=== PATIENT | male | born 1955 | race Caucasian/White ===

== ENCOUNTER → 2017-08-07 | Outpatient (CLI) | payer OTHER ==
[~2017-08-07] MED LIST: CONTRAST GIVEN MC
[2017-08-07] MEDS: IOHEXOL 240 MG/ML 100 ML VIAL. IV (11:45)
[2017-08-07] MEDS: IOHEXOL 300 MG/ML 50 ML VIAL. PO (13:30)
== END | disposition home or self-care (01) ==
LOC: CT 11:06
DX: K40.90 Unilateral inguinal hernia, without obstruction or gangrene, not specified as recurrent (principal); K57.30 Diverticulosis of large intestine without perforation or abscess without bleeding; M43.17 Spondylolisthesis, lumbosacral region; I70.0 Atherosclerosis of aorta; I10 Essential (primary) hypertension
CPT/HCPCS: 74177

== ENCOUNTER 2018-05-17 18:56 | Emergency (ER) | payer OTHER ==
[~2018-05-17] VITALS: Ht 182.9 cm; Wt 122.5 kg
[2018-05-17] MEDS ORDERED: IV NORMAL SALINE 1000ML BAG 1,000 ML IV SCH (19:30)
[2018-05-17] MEDS ORDERED: ASPIRIN CHEWABLE 81 MG TABLET. PO ONE (19:30)
--- NOTE | 2018-05-17 19:35 | PHYS DOC ---
Past Medical History Past Medical History: GERD, Hypertension Past Surgical History: Tonsillectomy, Other Additional Past Surgical Histo: 2 hernia surgeries. hydrosphere on right testicle. Alcohol Use: Rarely Drug Use: None Adult General Chief Complaint Chief Complaint: DIZZY/LIGHT HEADED HPI HPI Patient is a 62 year old male who presents with lightheadedness with standing. This started yesterday and has been getting worse over time. No nausea or vomiting. No chest pain or palpitations. No swelling in his legs feet or ankles. No shortness of breath or dyspnea on exertion. The lightheadedness gets better with standing up patient reports he does have ringing in his ears but this is long-standing and nothing new or different. Denies any head trauma. Denies any nausea, vomiting or diarrhea. Standing seems to make it worse. Sitting and laying down makes it better. Patient notes the has a mild cough that is lingering from a respiratory illness several weeks ago. [] Review of Systems Review of Systems Constitutional: Denies fever or chills [] Eyes: Denies change in visual acuity, redness, or eye pain [] HENT: Denies nasal congestion or sore throat [] Respiratory: Denies shortness of breath [] Cardiovascular: No chest pain or palpitations[] GI: Denies abdominal pain, nausea, vomiting, bloody stools or diarrhea [] : Denies dysuria or hematuria [] Musculoskeletal: Denies back pain or joint pain [] Integument: Denies rash or skin lesions [] Neurologic: Denies headache, focal weakness or sensory changes [] Endocrine: Denies polyuria or polydipsia [] All other systems were reviewed and found to be within normal limits, except as documented in this note. Current Medications Current Medications Current Medications Medications (Trade) Dose Ordered Sig/Aaron Start Time Stop Time Status Last Admin Dose Admin Aspirin (Children'S Aspirin) 324 mg 1X ONCE 05/17/18 19:30 05/17/18 19:34 DC 05/17/18 20:22 324 MG Sodium Chloride 1,000 ml @ 1,000 mls/hr Q1H 05/17/18 19:30 05/17/18 20:29 DC 05/17/18 20:23 1,000 MLS/HR Allergies Allergies Allergies Coded Allergies Type Severity Reaction Last Updated Verified iodine Allergy Intermediate SNEEZING AND ITCHY EYES 08/07/17 Yes lisinopril Allergy Intermediate cough 04/30/15 Yes Physical Exam Physical Exam Constitutional: Well developed, well nourished, no acute distress, non-toxic appearance. [] HENT: Normocephalic, atraumatic, bilateral external ears normal, oropharynx moist, no oral exudates, nose normal. [] Eyes: PERRLA, EOMI, conjunctiva normal, no discharge. [] Neck: Normal range of motion, no tenderness, supple, no stridor. [] Cardiovascular:Heart rate is tachycardic in the low 100s, with a regular rhythm , no murmur [] Lungs & Thorax: Bilateral breath sounds clear to auscultation [] Abdomen: Bowel sounds normal, soft, no tenderness, no masses, no pulsatile masses. [] Skin: Warm, dry, no erythema, no rash. [] Back: No tenderness, no CVA tenderness. [] Extremities: No tenderness, no cyanosis, no clubbing, ROM intact, no edema. [] Neurologic: Alert and oriented X 3, normal motor function, normal sensory function, no focal deficits noted. [] Psychologic: Affect normal, judgement normal, mood normal. [] Current Patient Data Vital Signs Vital Signs Date Time Temp Pulse Resp B/P (MAP) Pulse Ox O2 Delivery O2 Flow Rate FiO2 05/17/18 19:39 97.7 105 20 160/114 (129) 95 Room Air 97.7 Lab Values Laboratory Tests Test 05/17/18 19:32 05/17/18 20:38 05/17/18 20:53 White Blood Count 10.2 x10^3/uL (4.0-11.0) Red Blood Count 4.63 x10^6/uL (4.30-5.70) Hemoglobin 13.8 g/dL (13.0-17.5) Hematocrit 41.7 % (39.0-53.0) Mean Corpuscular Volume 90 fL (79-100) Mean Corpuscular Hemoglobin 30 pg (25-35) Mean Corpuscular Hemoglobin Concent 33 g/dL (31-37) Red Cell Distribution Width 13.4 % (11.5-14.5) Platelet Count 338 x10^3/uL (140-400) Neutrophils (%) (Auto) 56 % (31-73) Lymphocytes (%) (Auto) 35 % (24-48) Monocytes (%) (Auto) 7 % (0-9) Eosinophils (%) (Auto) 1 % (0-3) Basophils (%) (Auto) 1 % (0-3) Neutrophils # (Auto) 5.7 x10^3uL (1.8-7.7) Lymphocytes # (Auto) 3.6 x10^3/uL (1.0-4.8) Monocytes # (Auto) 0.7 x10^3/uL (0.0-1.1) Eosinophils # (Auto) 0.1 x10^3/uL (0.0-0.7) Basophils # (Auto) 0.1 x10^3/uL (0.0-0.2) Prothrombin Time 12.5 SEC (11.7-14.0) Prothrombin Time INR 1.0 (0.8-1.1) Sodium Level 137 mmol/L (136-145) Potassium Level 3.4 mmol/L (3.5-5.1) L Chloride Level 101 mmol/L (98-107) Carbon Dioxide Level 27 mmol/L (21-32) Anion Gap 9 (6-14) Blood Urea Nitrogen 17 mg/dL (8-26) Creatinine 0.8 mg/dL (0.7-1.3) Estimated GFR (Cockcroft-Gault) 98.0 BUN/Creatinine Ratio 21 (6-20) H Glucose Level 129 mg/dL (70-99) H Calcium Level 9.3 mg/dL (8.5-10.1) Magnesium Level 1.9 mg/dL (1.8-2.4) Total Bilirubin 0.6 mg/dL (0.2-1.0) Aspartate Amino Transferase (AST) 31 U/L (15-37) Alanine Aminotransferase (ALT) 81 U/L (16-63) H Alkaline Phosphatase 71 U/L (46-116) Troponin I Quantitative < 0.017 ng/mL (0.000-0.055) SV-Wmh-N-Type Natriuretic Peptide 8 pg/mL (0-124) Total Protein 7.3 g/dL (6.4-8.2) Albumin 3.7 g/dL (3.4-5.0) Albumin/Globulin Ratio 1.0 (1.0-1.7) Thyroid Stimulating Hormone (TSH) 3.325 uIU/mL (0.358-3.74) Influenza Type A Antigen Negative (NEGATIVE) Influenza Type B Antigen Negative (NEGATIVE) Urine Collection Type Unknown Urine Color Yellow Urine Clarity Clear Urine pH 7.0 Urine Specific [place] 1.025 Urine Protein Negative mg/dL (NEG-TRACE) Urine Glucose (UA) Negative mg/dL (NEG) Urine Ketones (Stick) Negative mg/dL (NEG) Urine Blood Negative (NEG) Urine Nitrite Negative (NEG) Urine Bilirubin Negative (NEG) Urine Urobilinogen Dipstick 1.0 mg/dL (0.2 mg/dL) Urine Leukocyte Esterase Negative (NEG) Urine RBC 0 /HPF (0-2) Urine WBC Rare /HPF (0-4) Urine Squamous Epithelial Cells Occ /LPF Urine Bacteria 0 /HPF (0-FEW) Laboratory Tests 05/17/18 19:32 Laboratory Tests 05/17/18 19:32 EKG EKG EKG shows a sinus rhythm at 97 bpm, no ST elevation, right axis deviation at 161 �, QTC of [address] elevations, nonspecific ST-T wave changes, no acute changes when compared with 04/30/2015. Interpreted by me at 1934[] Radiology/Procedures Radiology/Procedures CT head without contrast PQRS statement: CT scans at this facility use dose reduction including either automated exposure control, iterative reconstructions, and /or weight based radiation dosing via mA and kV modification when appropriate to reduce radiation dose to as low as reasonably achievable. HISTORY: Headache and dizziness. TECHNIQUE: [address] imaging skull base to vertex. FINDINGS: Calcified plaque of the intracranial arteries, and tortuosity which can be observed with long-standing hypertension. No intracranial hemorrhage, mass, hydrocephalus, extra-axial fluid collections or infarction. No acute ischemic change evident. The imaged paranasal sinuses, bones, mastoids and orbits are unremarkable. IMPRESSION: No acute intracranial CT abnormality. Chest x-ray showed no acute features[] Course & Med Decision Making Course & Med Decision Making Pertinent Labs and Imaging studies reviewed. (See chart for details) ED course: Patient arrived, was placed in bed, tolerated exam well. Patient was able to finally urinate after most of a liter of saline was administered. He reported feeling much better after the saline was complete. His heart rate improved from the low 100s to the 80s. Discussed lab and imaging findings with the patient who voiced understanding. All questions were answered. Patient was discharged in improved condition. Medical decision making: This does not appear to be a case of acute coronary syndrome, pneumonia, pneumothorax, intracranial mass or bleed. Believe this to be more related to hydration given his elevated BUN to creatinine ratio an elevated specific gravity after most of a liter had infused before he urinated.[ ] Dragon Disclaimer Dragon Disclaimer This electronic medical record was generated, in whole or in part, using a voice recognition dictation system. Departure Departure Impression: Primary Impression: Dehydration Disposition: 01 HOME, SELF-CARE Condition: IMPROVED Referrals: KHOA VERA Jr, MD (PCP) Follow-up in 2 days Patient Instructions: Dehydration, Adult Additional Instructions: Drink plenty of fluids. Follow-up with your primary care physician in 2 days. Return to the ER if worsening dizziness or any other concerns. PATRICE NGUYEN DO May 17, 2018 19:35
[2018-05-17 19:41] LABS: BASO # 0.1 x10^3/uL (0.0-0.2); BASO % 1 % (0-3); EOS # 0.1 x10^3/uL (0.0-0.7); EOS % 1 % (0-3); HEMATOCRIT 41.7 % (39.0-53.0); HEMOGLOBIN 13.8 g/dL (13.0-17.5); LYMPH # 3.6 x10^3/uL (1.0-4.8); LYMPH % 35 % (24-48); MEAN CORPUSCULAR HEMOGLOBIN 30 pg (25-35); MEAN CORPUSCULAR HGB CONC 33 g/dL (31-37); MEAN CORPUSCULAR VOLUME 90 fL (79-100); MONO # 0.7 x10^3/uL (0.0-1.1); MONO % 7 % (0-9); NEUT # 5.7 x10^3uL (1.8-7.7); NEUT % 56 % (31-73); PLATELET COUNT 338 x10^3/uL (140-400); RED BLOOD COUNT 4.63 x10^6/uL (4.30-5.70); RED CELL DISTRIBUTION WIDTH 13.4 % (11.5-14.5); WHITE BLOOD COUNT 10.2 x10^3/uL (4.0-11.0)
[2018-05-17 19:50] LABS: CALCIUM 9.3 mg/dL (8.5-10.1); CREATININE 0.8 mg/dL (0.7-1.3); POTASSIUM 3.4 mmol/L (3.5-5.1)
[2018-05-17 19:54] LABS: PROTHROMBIN TIME PATIENT 12.5 SEC (11.7-14.0)
[2018-05-17 19:56] LABS: ALBUMIN 3.7 g/dL (3.4-5.0); MAGNESIUM 1.9 mg/dL (1.8-2.4); TOTAL BILIRUBIN 0.6 mg/dL (0.2-1.0); TOTAL PROTEIN 7.3 g/dL (6.4-8.2)
--- NOTE | 2018-05-17 20:12 | RAD ---
CT head without contrast PQRS statement: CT scans at this facility use dose reduction including either automated exposure control, iterative reconstructions, and /or weight based radiation dosing via mA and kV modification when appropriate to reduce radiation dose to as low as reasonably achievable. HISTORY: Headache and dizziness. TECHNIQUE: [address] imaging skull base to vertex. FINDINGS: Calcified plaque of the intracranial arteries, and tortuosity which can be observed with long-standing hypertension. No intracranial hemorrhage, mass, hydrocephalus, extra-axial fluid collections or infarction. No acute ischemic change evident. The imaged paranasal sinuses, bones, mastoids and orbits are unremarkable. IMPRESSION: No acute intracranial CT abnormality. Electronically signed by: Jose Encinas MD (05/17/2018 8:07 PM) [facility]
[2018-05-17 21:04] LABS: BILIRUBIN,URINE NEGATIVE (NEG); CLARITY,URINE CLEAR; COLOR,URINE YELLOW; NITRITE,URINE NEGATIVE (NEG); PROTEIN,URINE NEGATIVE (NEG-TRACE)
[2018-05-17 21:09] LABS: INFLUENZA A PATIENT NEGATIVE (NEGATIVE); INFLUENZA B PATIENT NEGATIVE (NEGATIVE)
[2018-05-17 21:11] LABS: BACTERIA,URINE 0 /HPF (0-FEW); RBC,URINE 0 /HPF (0-2); SQUAMOUS EPITHELIAL CELL,UR OCC /LPF; WBC,URINE RARE /HPF (0-4)
[2018-05-17 21:15] VITALS: BP 152/81
--- NOTE | 2018-05-18 03:40 | RAD ---
PORTABLE CHEST 1V Clinical History: Dizziness and tachycardia Technique: AP view of the chest was obtained at 05/17/2018 7:30 PM. Comparison: None. Findings: The cardiomediastinal silhouette is normal. The pulmonary vasculature is normal. There is linear and patchy opacities in the lung bases left worse than right. Impression: Mild basal infiltrates likely discoid atelectasis. Electronically signed by: Zaid Silvestre III, MD (05/18/2018 3:35 AM) [facility]
--- NOTE | 2018-05-18 12:08 | EKG ---
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
--- NOTE | 2018-05-20 13:15 | EKG ---
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
== END 2018-05-17 21:30 | disposition home or self-care (01) ==
LOC: ER 18:56
DX: E86.0 Dehydration (principal); R42 Dizziness and giddiness; K21.9 Gastro-esophageal reflux disease without esophagitis; I10 Essential (primary) hypertension; Z90.89 Acquired absence of other organs; Z88.8 Allergy status to other drugs, medicaments and biological substances; Z91.041 Radiographic dye allergy status; Z79.82 Long term (current) use of aspirin
CPT/HCPCS: 36415; 70450; 71045; 80053; 81001; 83735; 83880; 84443; 84484; 85025; 85610; 87804; 93005; 96360; 99284; J7030

== ENCOUNTER → 2019-08-24 | Outpatient (CLI) | payer OTHER ==
[~2019-08-24] MED LIST changes: +AMLO5TAB10 PO; -CONTRAST GIVEN MC; +DOCU-153 PO; +HYDR-2761 PO; +LORA10TA55 PO; +MELO15TA6 PO; +METH750T2 PO; +MONT10TA49 PO; +OLME1TAB25 PO; +OMEP40CA45 PO; +POTA20TA4 PO
[2019-08-24 14:28] LABS: BASO % 0 % (0-3); EOS # 0.1 x10^3/uL (0.0-0.7); EOS % 1 % (0-3); HEMATOCRIT 39.9 % (39.0-53.0); HEMOGLOBIN 13.5 g/dL (13.0-17.5); LYMPH # 2.5 x10^3/uL (1.0-4.8); LYMPH % 30 % (24-48); MEAN CORPUSCULAR HEMOGLOBIN 31 pg (25-35); MEAN CORPUSCULAR HGB CONC 34 g/dL (31-37); MEAN CORPUSCULAR VOLUME 90 fL (79-100); MONO # 0.7 x10^3/uL (0.0-1.1); MONO % 8 % (0-9); NEUT # 5.2 x10^3/uL (1.8-7.7); NEUT % 61 % (31-73); PLATELET COUNT 328 x10^3/uL (140-400); RED BLOOD COUNT 4.41 x10^6/uL (4.30-5.70); RED CELL DISTRIBUTION WIDTH 13.4 % (11.5-14.5); WHITE BLOOD COUNT 8.5 x10^3/uL (4.0-11.0)
[2019-08-24 14:42] LABS: ALBUMIN 3.8 g/dL (3.4-5.0); ALBUMIN/GLOBULIN RATIO 1.2 (1.0-1.7); CALCIUM 8.5 mg/dL (8.5-10.1); CREATININE 1.1 mg/dL (0.7-1.3); GFR 67.4; POTASSIUM 3.9 mmol/L (3.5-5.1); TOTAL BILIRUBIN 0.4 mg/dL (0.2-1.0)
--- NOTE | 2019-08-24 15:07 | EKG ---
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
--- NOTE | 2019-08-25 12:35 | HP ---
ADMIT DATE: 08/27/2019 PREOP HISTORY AND PHYSICAL DATE OF SURGERY: 08/27/2019 HISTORY OF PRESENT ILLNESS: The patient is a pleasant 64-year-old who in April developed severe neck and left arm pain after a driving trip. He said that his left arm has felt weak ever since. He notes numbness in the ring and little fingers of his left hand. He said that the pain is a 7/10 at its worse. Today, his pain is a 2-3/10. Sitting and driving increases pain. Lying down helps. Oral steroids were of no benefit. He has had 9 sessions of physical therapy, which helped him only slightly. There is no problem on the right arm. He has never had a similar problem. PAST MEDICAL HISTORY: Arthritis and hypertension. PAST SURGICAL HISTORY: He denies any past surgical history. FAMILY HISTORY: Cancer and hypertension. 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 . Quit smoking greater than 10 years ago. Drinks alcohol 1-2 times per month. ALLERGIES: No known drug allergies. CURRENT MEDICATIONS: Omeprazole, meloxicam, hydrochlorothiazide, amlodipine besylate and potassium. REVIEW OF SYSTEMS: A 12-point review of systems was obtained and is noncontributory except for that mentioned above. PHYSICAL EXAMINATION: NEUROSURGERY EXAMINATION: GENERAL APPEARANCE: Alert, pleasant, in no acute distress. HEAD: Normocephalic and atraumatic. NECK AND THYROID: Oqpv-ys-xdvcvnrr tenderness with palpation of posterior cervical region. SKIN: Warm and dry. MUSCULOSKELETAL: Cervical paraspinal muscle bulk is normal, cervical range of motion is restricted, normal range of motion of the upper extremities bilaterally. EXTREMITIES: No clubbing, cyanosis or edema. NEUROLOGIC: Alert and oriented x 3, normal recent and remote memory, strength 5/5 in bilateral upper and lower extremities except 4/5 left triceps. Sensory was intact to light touch in the upper and lower extremities except for a decrease in the left ring and little fingers. Reflexes were trace and symmetric in the upper and lower extremities bilaterally except for an absent left triceps reflex, normal gait. IMAGING: I reviewed an MRI scan of the cervical spine. On that study, there are multilevel degenerative changes with areas of liyb-va-zheirmld foraminal narrowing. There is severe foraminal narrowing; however, on the left at C6-C7. ASSESSMENT/ PLAN: I believe the severe foraminal narrowing on the left at C6-C7 is responsible for his pain. He has had this problem for more than 4 months. He is slightly improved with physical therapy. He has had significant triceps weakness. My recommendation at this point is that he consider anterior cervical discectomy and fusion. He would strongly like to go ahead with this. I did discuss the surgery and the risks involved and expected postoperative course. He understands. He would like to proceed. We will make the arrangements. DARIAN MOORE MD DR: AHMET/lyn JOB#: [id number] / [id number] ANDREW
== END | disposition home or self-care (01) ==
LOC: SURGPAT 13:34
PROVIDERS: ATTEND Neurological Surgery
DX: Z01.818 Encounter for other preprocedural examination (principal); M47.22 Other spondylosis with radiculopathy, cervical region
CPT/HCPCS: 36415; 80053; 85025; 87641; 93005; U0003

== ENCOUNTER 2019-08-27 07:28 | Observation (INO) | payer OTHER ==
[~2019-08-27] VITALS: Ht 182.9 cm; Wt 122.5 kg
[2019-08-27] VITALS (8 sets, daily range): BP systolic 94–127; BP diastolic 65–76
[~2019-08-27 07:28] MED LIST changes: +BACITRACIN 50,000 UNIT in IV NORMAL SALINE 1000ML BAG 1,000 ML IRR ONE; +BUPIVACAINE-EPI 0.5%-1:200000 MPF 30 ML VIAL. ONE; -DOCU-153 PO; +GELATIN SPONGE SIZE 100. ONE; -HYDR-2761 PO; +HYDROmorphone 2 MG/ML VIAL IV PRN; +IV RINGERS,LACTATED 1000ML 1,000 ML IV SCH; +LIDOCAINE 1% PF 2 ML VIAL. ID PRN; -METH750T2 PO; +MORPHINE SULFATE 2 MG/ML VIAL. IV PRN; +ONDANSETRON PF 4 MG/2 ML VIAL. IV PRN; +PROCHLORPERAZINE 10 MG/2 ML VIAL. IV PRN; +THROMBIN TOPICAL 20,000 UNIT SPRAY.SYRN KIT TP ONE; +ceFAZolin SODIUM 3 GM in IV DEXTROSE 5% 100ML 100 ML IV PRN; +fentaNYL PF VIAL 100 MCG/2 ML VIAL IV PRN
[2019-08-27] MEDS ORDERED: LIDOCAINE 2% PF 5 ML VIAL. ONE (07:34)
[2019-08-27] MEDS ORDERED: fentaNYL PF VIAL 100 MCG/2 ML VIAL ONE ×2 (07:34→11:48)
[2019-08-27] MEDS ORDERED: REMIFENTANIL 2 MG VIAL. IV ONE (07:34)
[2019-08-27] MEDS ORDERED: PROPOFOL 10 MG/ML (20ML) VIAL. IV ONE (07:34)
[2019-08-27] MEDS ORDERED: ROCURONIUM 50 MG/5 ML VIAL. ONE (07:34)
[2019-08-27] MEDS ORDERED: 0.9 % SODIUM CHLORIDE 20 ML VIAL. IJ ONE (07:34)
[2019-08-27] MEDS ORDERED: PROPOFOL 50 ML IV ONE ×2 (07:34→09:51)
[2019-08-27] MEDS ORDERED: DESFLURANE > 120 MINUTES IH ONE (08:57)
[2019-08-27] MEDS ORDERED: DEXAMETHASONE SOD PHOS 20 MG/5 ML VIAL. ONE (08:57)
[2019-08-27] MEDS ORDERED: PHENYLEPHRINE in 0.9% NACL PF 1 MG/10 ML SYRINGE. IV ONE (09:02)
[2019-08-27] MEDS ORDERED: VASOPRESSIN 20 UNIT/ML VIAL. ONE (09:10)
[2019-08-27] MEDS ORDERED: PHENYLEPHRINE 10 MG/ML VIAL. ONE (09:28)
[2019-08-27] MEDS ORDERED: GLYCOPYRROLATE 1 MG/5 ML VIAL. ONE (09:34)
[2019-08-27] MEDS ORDERED: REMIFENTANIL 1 MG VIAL. IV ONE (10:30)
[2019-08-27] MEDS ORDERED: ONDANSETRON PF 4 MG/2 ML VIAL. ONE (11:14)
[2019-08-27] MEDS ORDERED: POTASSIUM CL 20MEQ D5-0.45NACL 1,000 ML IV SCH (11:24)
[2019-08-27] MEDS ORDERED: MAG HYDROX/ALUMINUM HYD/SIMETH 30 ML ORAL.SUSP PO PRN (11:30)
[2019-08-27] MEDS ORDERED: MAGNESIUM HYDROXIDE 2,400 MG/30 ML ORAL.SUSP. PO PRN (11:30)
[2019-08-27] MEDS: PANTOPRAZOLE 40 MG TABLET.DR. PO SCH (11:30)
[2019-08-27] MEDS ORDERED: fentaNYL PF VIAL 100 MCG/2 ML VIAL IVP PRN (11:30)
[2019-08-27] MEDS ORDERED: ACETAMINOPHEN 325 MG TABLET. PO PRN (11:30)
[2019-08-27] MEDS ORDERED: METHOCARBAMOL 750 MG TABLET PO PRN (11:30)
[2019-08-27] MEDS ORDERED: HYDROcodone/APAP 5/325MG 1 TAB TABLET PO PRN ×2 (11:30)
[2019-08-27] MEDS ORDERED: 0.9 % SODIUM CHLORIDE 10 ML DISP.SYRIN. IV PRN (11:30)
[2019-08-27] MEDS ORDERED: CALCIUM CARBONATE 500 MG TAB.CHEW PO PRN (11:30)
[2019-08-27] MEDS ORDERED: diphenhydrAMINE HCL 25 MG CAPSULE PO PRN (11:30)
[2019-08-27] MEDS ORDERED: ONDANSETRON PF 4 MG/2 ML VIAL. IVP PRN (11:30)
[2019-08-27] MEDS ORDERED: NALOXONE 0.4 MG/ML VIAL. IV PRN (11:30)
[2019-08-27] MEDS: fentaNYL PF VIAL 100 MCG/2 ML VIAL IV PRN ×2 (11:51→12:21)
[2019-08-27] MEDS ORDERED: hydroCHLOROthiazide 12.5 MG CAPSULE PO SCH (12:00)
[2019-08-27] MEDS: CETIRIZINE HCL 10 MG TABLET. PO SCH ×2 (12:00→19:32)
[2019-08-27] MEDS ORDERED: POTASSIUM CHLORIDE 20 MEQ TABLET.ER. PO SCH (12:00)
[2019-08-27] MEDS ORDERED: LOSARTAN POTASSIUM 50 MG TABLET. PO SCH (12:00)
[2019-08-27] MEDS ORDERED: amLODIPine BESYLATE 5 MG TABLET PO SCH (12:00)
--- NOTE | 2019-08-27 13:08 | OP ---
DATE OF SURGERY: 08/27/2019 PREOPERATIVE DIAGNOSES: Lateral recess stenosis/foraminal narrowing with severe left cervical radiculopathy, C6-C7. POSTOPERATIVE DIAGNOSES: Lateral recess stenosis/foraminal narrowing with severe left cervical radiculopathy, C6-C7. OPERATION PERFORMED: Anterior cervical microdiscectomy, C6-C7; anterior cervical interbody fusion, C6-C7 with interbody fusion cage packed with allograft and autograft bone anterior cervical plate, C6-C7. The surgery was done with EMG monitoring, SSEP monitoring, fluoroscopy, microscopic dissection, and motor evoked potentials. SURGEON: Robel Moore M.D. AD COPY WRITER: CHYNA Kc, assisted with the surgery. She assisted with the exposure, the microdiscectomy and microdecompression as well as the closure. OPERATIVE INDICATIONS: The patient is a pleasant 64-year-old, who developed intractable back and left arm pain, which was severe. On imaging studies, he had severe foraminal narrowing at C6-C7 on the left and I recommended an anterior cervical discectomy and fusion at that level. I discussed with him the surgery and the risks, the technique and he wished to go ahead. DESCRIPTION OF PROCEDURE: Following general endotracheal anesthesia, the patient was positioned supine on the operating room table. The anterior cervical region was prepped and draped in standard fashion. SARA hose and AV impulse boots were applied for DVT prophylaxis. A microscope was draped. Fluoroscopy was draped and brought into field. Monitoring was established. Ancef 3 grams was given less than 1 hour prior to initiation of surgery. Using fluoroscopic guidance, a curvilinear incision was made from the midline around to the right side in a skin crease. I dissected down through skin and subcutaneous tissue. After sharply dividing the platysma, I passed around the medial aspect of sternocleidomastoid and carotid artery sheath down the anterior cervical vertebral bodies. I placed anterior cervical retractors. I placed 14 mm pins in C6 and C7. Because of the size, it was difficult to visualize C6-C7, but I could visualize C5-C6 and placed a needle in C5-C6, had a clear visibility at C6-C7. I distracted the disc space at C6-C7 after placing anterior cervical retractors. I incised the anterior annulus and performed a generous discectomy. I drilled the anterior spurring and kept that bone for the fusion and then I drilled the posterior spurring and then opened this with a 1 and 2 mm micro Kerrison. I removed a thickened ligamentum flavum. As I worked on the left side, there was severe narrowing, which I released with the Kerrisons and then I also decompressed the right side as well. I was easily able to pass a blunt hook out through the foramen. I scraped away cartilaginous endplate and measured and placed a 6-mm interbody fusion cage, which was packed with allograft and autograft bone. Once this was gently tapped in, I placed an anterior plate with 12 mm and placed four 14 mm screws without difficulty. These were locked. I irrigated copiously, removed the retractors and Valsalva the patient and assured myself of perfect hemostasis and I closed the wound in layers with absorbable suture and the skin with a 4-0 subcuticular stitch. The surgery went very well and I was quite pleased. ROBEL MOORE MD DR: AHMET/lyn JOB#: [id number] / [id number] ANDREW
[2019-08-27] MEDS: ceFAZolin SODIUM IV Push 1 GM VIAL. IVP SCH (17:43)
[2019-08-27] MEDS ORDERED: MONTELUKAST SODIUM 10 MG TABLET. PO SCH (21:00)
[2019-08-27] MEDS ORDERED: DOCUSATE SODIUM 100 MG CAPSULE. PO SCH (21:00)
[2019-08-27] MEDS ORDERED: SODIUM CHLORIDE 0.65% NASAL SPRAY 45ML BOTTLE. NS PRN (21:15)
[2019-08-28] MEDS: ceFAZolin SODIUM IV Push 1 GM VIAL. IVP SCH (01:28)
[2019-08-28 03:00] VITALS: BP 129/82
[2019-08-28] MEDS: PANTOPRAZOLE 40 MG TABLET.DR. PO SCH (06:38)
[2019-08-28 07:00] VITALS: BP 129/77
[2019-08-28] MEDS ORDERED: DOCU-153 PO (08:36)
[2019-08-28] MEDS ORDERED: METH750T2 PO (08:36)
[2019-08-28] MEDS ORDERED: HYDR-2761 PO (08:36)
--- NOTE | 2019-08-28 08:38 | DISCH ---
DISCHARGE INSTRUCTIONS Condition on Discharge Condition on Discharge: Stable Activity After Discharge Activity Instructions for Disc: Activity as tolerated, Avoid exertion Other activity instructions: no driving for a week, soft collar for comfort Bathing Instructions: Shower-keep dressing dry Lifting Instructions after Dis: No heavy lifting, No pulling or pushing, Do not lift >10 pounds Diet after Discharge Additional Diet Restrictions: resume home diet Wound Incision Care Wound/Incision Care: Ice to area for comfort Other wound/incision instructi: may remove dressing in 48 hours if dry then may shower, no soaking Contacting the after DC Call your doctor for: Concerns you may have Follow-Up Follow up with: Dr. Moore's nurse in 2 weeks [phone] DARIAN MOORE MD August 28, 2019 08:38
== END 2019-08-28 09:35 | disposition home or self-care (01) ==
LOC: SURG 07:28 → 4 NORTH 13:48
PROVIDERS: ADMIT Neurological Surgery; ATTEND Neurological Surgery
DX: M47.812 Spondylosis without myelopathy or radiculopathy, cervical region (principal)
CPT/HCPCS: 20930; 20937; 22551; 22845; 22853; 76000; 96374; 96376; 97161; G0378; G0379; J0690; J1100; J2370; J2405; J2704; J3010; J3490; J7030

== ENCOUNTER → 2019-11-23 | Outpatient (CLI) | payer OTHER ==
[~2019-11-23] MED LIST changes: -BACITRACIN 50,000 UNIT in IV NORMAL SALINE 1000ML BAG 1,000 ML IRR ONE; -BUPIVACAINE-EPI 0.5%-1:200000 MPF 30 ML VIAL. ONE; +DOCU-153 PO; -GELATIN SPONGE SIZE 100. ONE; +HYDR-2761 PO; -HYDROmorphone 2 MG/ML VIAL IV PRN; -IV RINGERS,LACTATED 1000ML 1,000 ML IV SCH; -LIDOCAINE 1% PF 2 ML VIAL. ID PRN; +METH750T2 PO; -MORPHINE SULFATE 2 MG/ML VIAL. IV PRN; -ONDANSETRON PF 4 MG/2 ML VIAL. IV PRN; -PROCHLORPERAZINE 10 MG/2 ML VIAL. IV PRN; -THROMBIN TOPICAL 20,000 UNIT SPRAY.SYRN KIT TP ONE; -ceFAZolin SODIUM 3 GM in IV DEXTROSE 5% 100ML 100 ML IV PRN; -fentaNYL PF VIAL 100 MCG/2 ML VIAL IV PRN
--- NOTE | 2019-11-23 12:29 | KCIC ---
EXAM: CERVICAL SPINE 2-3V. HISTORY: Cervical fusion. COMPARISON: None. FINDINGS: Anterior cervical discectomy and fusion changes are noted at C6-7 with an anterior plate fixed by screws and interbody grafting. Cervical alignment is maintained. There is mild upper thoracic levocurvature. No fractures are identified. Remaining intervertebral disc heights are maintained for patient age. There appears to be moderate osteoarthritis at C1-2. Carotid atherosclerotic calcifications are noted bilaterally. IMPRESSION: 1. C6-7 anterior cervical discectomy and fusion in expected alignment. Electronically signed by: Malissa Ventura MD (11/23/2019 12:26 PM) [id number]
== END | disposition home or self-care (01) ==
LOC: KCIC 11:01
PROVIDERS: ATTEND Neurological Surgery
DX: M43.22 Fusion of spine, cervical region (principal); M43.8X4 Other specified deforming dorsopathies, thoracic region; I65.23 Occlusion and stenosis of bilateral carotid arteries; Z98.1 Arthrodesis status
CPT/HCPCS: 72040

== ENCOUNTER → 2020-02-24 | Outpatient (CLI) | payer OTHER ==
[~2020-02-24] MED LIST changes: +AMLO-186 PO; -AMLO5TAB10 PO
--- NOTE | 2020-02-24 16:41 | KCIC ---
L-spine 3 views INDICATION: Pain and crepitus. Low back pain since feeling a pop in the lumbar spine 2 weeks ago. COMPARISON: No relevant comparisons currently available.. FINDINGS: 5 lumbar type vertebrae. Generalized demineralization. No acute fracture or aggressive osseous lesions. Bilateral L5 pars defects are present with grade 1-2 anterolisthesis of L5 on S1. Lumbar spinal alignment is otherwise unremarkable. Disc space narrowing is mildly present at L1-L2 and to a lesser extent at L2-L3 but most conspicuously at L5-S1 where vacuum phenomenon is also present. Minimal facet hypertrophic changes present at L4-L5. Sacroiliac joints and visualized hips are unremarkable. Soft tissues show arterial calcifications. IMPRESSION: Bilateral L5 pars defects with grade 1-2 anterolisthesis of L5 on S1. These have a chronic appearance but acute on chronic injury is possible. Consider correlation with MRI if clinically warranted. Electronically signed by: Momo Castaneda MD (02/24/2020 4:38 PM) [id number]
== END ==
LOC: KCIC 11:25
PROVIDERS: ATTEND Physician Assistant
DX: M43.17 Spondylolisthesis, lumbosacral region (principal); M81.8 Other osteoporosis without current pathological fracture
CPT/HCPCS: 72100

== ENCOUNTER → 2020-06-21 | Outpatient (CLI) | payer OTHER ==
[~2020-06-21] MED LIST changes: +LORA-169 PO; -LORA10TA55 PO; +METH-562 PO; -METH750T2 PO
--- NOTE | 2020-06-21 12:38 | KCIC ---
EXAM: Lumbar spine MRI without contrast. HISTORY: Acute back pain. TECHNIQUE: Multiplanar, multisequence magnetic resonance imaging of the lumbar spine was performed wi thout contrast. COMPARISON: CT dated 01/27/2020. FINDINGS: There is a transitional lumbosacral segment. This considered S1 with rudimentary S1-S2 disc for this dictation. There is grade 1 anterolisthesis of L5 on S1, measuring 5 mm. There are bilatera l pars interarticularis defects at this level. There is degenerative endplate remodeling with disc sp trev narrowing, osteophytosis and disc desiccation at this level. There is no suspicious osseous lesio n. There are few benign osseous hemangiomas. The conus terminates at L1-L2. There is suggestion of a 10 mm partially exophytic lesion along the posterior mid zone of the left kidney. At L1-L2 and L2-L3, there is no stenosis. At L3-L4, there is a disc bulge and endplate remodeling. There is mild bilateral facet arthropathy. T here is no stenosis. At L4-L5, there is a minimal shallow posterior central disc protrusion. There is endplate remodeling. There is mild bilateral facet arthropathy. There is no stenosis. At L5-S1, there is a broad-based posterior central to left paracentral disc protrusion with left para central to lateral recess disc extrusion extending 10 mm superior to the disc space. There are also b ilateral paracentral to extraforaminal disc protrusions and slight superior extrusions and osteophyte complexes at this level. There is epidural lipomatosis. There is grade 1 anterolisthesis with bilate ral pars defects. There is severe lateral foraminal stenosis with abutment the exiting L5 nerve roots . There is severe narrowing of the thecal sac predominant due to epidural lipomatosis. IMPRESSION: 1. L5-S1: Broad-based posterior central to left paracentral disc protrusion with superimposed left pa racentral to lateral recess superior extrusion and bilateral posterior lateral disc protrusions with slight superior extrusions and osteophyte complexes. The combination of these findings and grade 1 an terolisthesis with bilateral pars defects and epidural lipomatosis results in severe bilateral forami nal stenosis and severe narrowing of the thecal sac. 2. Mild degenerative change throughout the remainder the lumbar spine, described in detail above. No additional significant foraminal or central canal stenosis is seen. 3. Suspected small partially exophytic lesion along the posterior mid zone of the left kidney. The pr eviously suspected right renal cysts is excluded from the [id number] on this exam. Renal sonograph y can be performed to confirm benignity. The adrenal gland are also excluded from the [id number]-hrva. Electronically signed by: Meg Andrade MD (06/21/2020 12:35 PM) [id number]
== END ==
LOC: KCIC MRI 10:36
PROVIDERS: ATTEND Physician Assistant
DX: M47.816 Spondylosis without myelopathy or radiculopathy, lumbar region (principal); M43.17 Spondylolisthesis, lumbosacral region; M25.78 Osteophyte, vertebrae
CPT/HCPCS: 72148

== ENCOUNTER → 2020-07-19 | Outpatient (CLI) | payer OTHER ==
--- NOTE | 2020-07-19 17:22 | KCIC ---
EXAM: Renal sonogram. HISTORY: Renal cyst on MRI. TECHNIQUE: Sonographic imaging of the kidneys and bladder was performed. COMPARISON: MRI dated 06/21/2020. FINDINGS: The kidneys are normal in size. There are simple appearing bilateral renal cysts measuring 1.8 cm of the right and 1.7 cm on the left. No convincing solid renal lesion is seen. There are suspe cted 7 mm nonobstructing bilateral renal stones. The prevoid bladder volume is 179 cc. The bilateral ureteral jets are seen. IMPRESSION: 1. Small simple appearing renal cysts. Follow-up is not routinely performed for simple cysts. 2. Suspected bilateral nephrolithiasis. Electronically signed by: Meg Andrade MD (07/19/2020 5:20 PM) [facility]
== END ==
LOC: KCIC US 12:53
PROVIDERS: ATTEND Physician Assistant
DX: N28.1 Cyst of kidney, acquired (principal)
CPT/HCPCS: 76770

== ENCOUNTER → 2020-08-07 | Outpatient (CLI) | payer OTHER, MEDICARE ==
[~2020-08-07] MED LIST changes: +DOCU-109 PO; +MELO15TA23 PO
[2020-08-07 09:20] LABS: BASO % 1 % (0-3); EOS # 0.1 x10^3/uL (0.0-0.7); EOS % 2 % (0-3); HEMATOCRIT 40.4 % (39.0-53.0); HEMOGLOBIN 13.8 g/dL (13.0-17.5); LYMPH # 2.2 x10^3/uL (1.0-4.8); LYMPH % 28 % (24-48); MEAN CORPUSCULAR HEMOGLOBIN 31 pg (25-35); MEAN CORPUSCULAR HGB CONC 34 g/dL (31-37); MEAN CORPUSCULAR VOLUME 91 fL (79-100); MONO # 0.7 x10^3/uL (0.0-1.1); MONO % 9 % (0-9); NEUT # 4.8 x10^3/uL (1.8-7.7); NEUT % 62 % (31-73); PLATELET COUNT 273 x10^3/uL (140-400); RED BLOOD COUNT 4.46 x10^6/uL (4.30-5.70); RED CELL DISTRIBUTION WIDTH 13.8 % (11.5-14.5); WHITE BLOOD COUNT 7.8 x10^3/uL (4.0-11.0)
[2020-08-07 09:57] LABS: ALBUMIN 4.2 g/dL (3.4-5.0); ALBUMIN/GLOBULIN RATIO 1.3 (1.0-1.7); CALCIUM 8.6 mg/dL (8.5-10.1); CREATININE 0.9 mg/dL (0.7-1.3); POTASSIUM 4.5 mmol/L (3.5-5.1); TOTAL BILIRUBIN 0.7 mg/dL (0.2-1.0); TOTAL PROTEIN 7.4 g/dL (6.4-8.2)
== END ==
LOC: SURGPAT 08:48
PROVIDERS: ATTEND Neurological Surgery
DX: Z01.812 Encounter for preprocedural laboratory examination (principal); M51.17 Intervertebral disc disorders with radiculopathy, lumbosacral region; M48.07 Spinal stenosis, lumbosacral region; Z20.822 Contact with and (suspected) exposure to COVID-19
CPT/HCPCS: 80053; 85025; 87641; U0003; U0005

== ENCOUNTER 2020-08-09 08:26 | Observation (INO) | payer MEDICARE ==
--- NOTE | 2020-08-08 16:19 | PREOP HP ---
DATE OF SERVICE: 08/09/2020 HISTORY OF PRESENT ILLNESS: The patient is a 64-year-old man who is having difficulty with low back pain which radiates to his lower extremities. On the right side, the pain is in the posterior thigh and leg. On the left side, there is a diffuse left leg pain, especially after walking distances. The right-sided pain has been present for years. The back pain has been present for several months. The left leg pain has also been present for several months. Walking and standing increases his back and lower extremity discomfort. Sitting helps. He takes Advil and Celebrex. He has had multiple chiropractic treatments, which he said helped for only a few days. He has had a steroid Medrol Dosepak, which did help him temporarily. He did undergo an ACDF at C6-C7 in August of 2019 and did well. CURRENT MEDICATIONS: 1. Azithromycin. 2. Prednisone. 3. Loratadine. 4. Singulair. 5. Advil. 6. Omeprazole. 7. Meloxicam. 8. Potassium. PAST MEDICAL HISTORY: 1. Arthritis. 2. Hypertension. PAST SURGICAL HISTORY: ACDF C6-C7. FAMILY HISTORY: Cancer and hypertension. 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 . Quit smoking more than 10 years ago. Drinks alcohol 1-2 times per month. REVIEW OF SYSTEMS: A 12-point review of systems was performed and is noncontributory except that as mentioned above. PHYSICAL EXAMINATION: GENERAL: Alert, pleasant, in no acute distress. HEENT: Head normocephalic, atraumatic. SKIN: Warm and dry. Well-healed cervical incision. MUSCULOSKELETAL: Lumbar paraspinal muscle bulk is normal. Restricted range of motion of the lumbar spine. Mild to moderate tenderness of the lower lumbar spine with palpation. Normal range of motion of the lower extremities bilaterally. EXTREMITIES: No clubbing, cyanosis or edema. NEUROLOGIC: Alert and oriented x 3. Normal recent and remote memory. Strength is 5/5 in the lower extremities bilaterally. Sensory is intact to light touch in the lower extremities. Reflexes were present and symmetric in the lower extremities bilaterally. Negative straight leg raising bilaterally. Normal gait. IMAGING: I reviewed a lumbar MRI scan from 06/21/2020. On that study, the primary abnormality is at L5-S1 where there is a broad-based central and left paracentral disk protrusion as well as disk extrusion which extends about 10 mm into the disk space. The disk bulging combined with epidural lipomatosis is associated with severe lateral recess stenosis and moderate stenosis of the central canal. ASSESSMENT AND PLAN: He has relatively severe back and right and left leg pain. He has significant changes at L5-S1 which include epidural lipomatosis as well as severe disk bulging and stenosis. My recommendation is that he undergo a complete laminectomy with removal of the epidural lipomatosis as well as a diskectomy to decompress the L5 and S1 roots bilaterally. I did discuss this with him in detail. He understands the rationale for the surgery. We spoke about treatment options. He has no interest in pursuing that and that he did have physical therapy and chiropractic treatment without benefit. He understands the surgery and the risk and would like to proceed. AHMET/PRECIOUS/ANIBAL DR: Waylon TID: [id number]
[2020-08-09] VITALS (8 sets, daily range): BP systolic 98–126; BP diastolic 58–79
[~2020-08-09] VITALS: Ht 182.9 cm; Wt 127.0 kg
[~2020-08-09 08:26] MED LIST changes: +BACITRACIN 50,000 UNIT in IV NORMAL SALINE 1000ML BAG 1,000 ML IRR ONE; -DOCU-109 PO; +HYDROmorphone 2 MG/ML VIAL IVP PRN; +IV RINGERS,LACTATED 1000ML 1,000 ML IV SCH; +fentaNYL PF VIAL 100 MCG/2 ML VIAL IVP PRN
[2020-08-09] MEDS ORDERED: KETOROLAC 60 MG/2 ML VIAL. ONE (10:10)
[2020-08-09] MEDS ORDERED: GELATIN SPONGE SIZE 100. ONE (10:10)
[2020-08-09] MEDS ORDERED: THROMBIN TOPICAL 20,000 UNIT SPRAY.SYRN KIT TP ONE (10:11)
[2020-08-09] MEDS ORDERED: BUPIVACAINE-EPI 0.5%-1:200000 MPF 30 ML VIAL. ONE (10:11)
[2020-08-09] MEDS ORDERED: ePHEDrine PF IN SALINE 50 MG/10 ML SYRINGE. IV ONE (10:40)
[2020-08-09] MEDS ORDERED: PROPOFOL 50 ML IV ONE ×2 (10:41→13:29)
[2020-08-09] MEDS ORDERED: GLYCOPYRROLATE 1 MG/5 ML VIAL. ONE (10:41)
[2020-08-09] MEDS ORDERED: PROPOFOL 10 MG/ML (20ML) VIAL. IV ONE (10:42)
[2020-08-09] MEDS ORDERED: LIDOCAINE 2% PF 5 ML VIAL. ONE (10:42)
[2020-08-09] MEDS ORDERED: fentaNYL PF VIAL 100 MCG/2 ML VIAL ONE ×2 (10:42→14:24)
[2020-08-09] MEDS ORDERED: SUCCINYLCHOLINE 200 MG/10 ML VIAL. ONE (10:43)
[2020-08-09] MEDS ORDERED: ROCURONIUM 50 MG/5 ML VIAL. ONE (10:43)
[2020-08-09] MEDS ORDERED: REMIFENTANIL 2 MG VIAL. IV ONE (10:43)
[2020-08-09] MEDS ORDERED: DESFLURANE > 120 MINUTES IH ONE ×2 (12:04→13:29)
[2020-08-09] MEDS ORDERED: PHENYLEPHRINE 10 MG/ML VIAL. ONE (12:04)
[2020-08-09] MEDS ORDERED: NEOSTIGMINE METHYLSULFATE 5 MG/5 ML SYRINGE. ONE (13:30)
[2020-08-09] MEDS ORDERED: METH-562 PO (14:16)
[2020-08-09] MEDS ORDERED: DOCU-109 PO (14:16)
[2020-08-09] MEDS ORDERED: HYDR-2761 PO (14:16)
--- NOTE | 2020-08-09 14:17 | DISCH ---
DISCHARGE INSTRUCTIONS Condition on Discharge Condition on Discharge: Stable Activity After Discharge Activity Instructions for Disc: Activity as tolerated, Avoid exertion Other activity instructions: no driving for a week Bathing Instructions: Shower-keep dressing dry Lifting Instructions after Dis: No heavy lifting, No pulling or pushing, Do not lift >10 pounds Driving Instructions after Dis: Do not drive today Weight Bearing Status after Di: As tolerated Diet after Discharge Diet after Discharge: Regular Additional Diet Restrictions: resume home diet Wound Incision Care Wound/Incision Care: Ice to area for comfort Other wound/incision instructi: may remove dressing in 48 hours if dry then may shower, no soaking Contacting the after DC Call your doctor for: Concerns you may have Follow-Up Follow up with: Dr. Moore's nurse in 2 weeks [phone] DARIAN MOORE MD August 09, 2020 14:17
[2020-08-09] MEDS ORDERED: PROCHLORPERAZINE 10 MG/2 ML VIAL. ONE (14:24)
[2020-08-09] MEDS: PROCHLORPERAZINE 10 MG/2 ML VIAL. IVP PRN ×2 (14:28→14:48)
[2020-08-09] MEDS: fentaNYL PF VIAL 100 MCG/2 ML VIAL IVP PRN ×2 (14:28→14:48)
[2020-08-09] MEDS: MORPHINE SULFATE 2 MG/ML VIAL. IVP PRN ×2 (15:08→15:35)
[2020-08-09] MEDS ORDERED: NALOXONE 0.4 MG/ML VIAL. IV PRN (15:15)
[2020-08-09] MEDS ORDERED: MAGNESIUM HYDROXIDE 2,400 MG/30 ML ORAL.SUSP. PO PRN (15:15)
[2020-08-09] MEDS ORDERED: CALCIUM CARBONATE 500 MG TAB.CHEW PO PRN (15:15)
[2020-08-09] MEDS ORDERED: diphenhydrAMINE HCL 25 MG CAPSULE PO PRN (15:15)
[2020-08-09] MEDS: POTASSIUM CL 20MEQ D5-0.45NACL 1,000 ML IV SCH (15:15)
[2020-08-09] MEDS ORDERED: METHOCARBAMOL 750 MG TABLET PO PRN (15:15)
[2020-08-09] MEDS ORDERED: HYDROcodone/APAP 5/325MG 1 TAB TABLET PO PRN ×2 (15:15)
[2020-08-09] MEDS ORDERED: fentaNYL PF VIAL 100 MCG/2 ML VIAL IVP PRN (15:15)
[2020-08-09] MEDS ORDERED: MAG HYDROX/ALUMINUM HYD/SIMETH 30 ML ORAL.SUSP PO PRN (15:15)
[2020-08-09] MEDS ORDERED: 0.9 % SODIUM CHLORIDE 10 ML DISP.SYRIN. IV PRN (15:15)
--- NOTE | 2020-08-09 15:31 | PDOC1 ---
History and Physical Date of Admission Date of Admission DATE: 08/09/20 TIME: 15:31 Identification/Chief Complaint Chief Complaint post op consult [id number] laminectomy today History of Present Illness History of Present Illness low back pain which radiates to his lower extremities. On the pain is in the posterior thigh and leg. pre-op On the left side, there diffuse left leg pain, especially after walking distances. The right-sided pain has been present for years. The back pain has been present for several months. Walking and standing increases his back and lower extremity discomfort. He takes Advil and Celebrex. He has failed conservative treatments He has had multiple chiropractic treatments, which helped for only a few days. He has had a steroid Medrol Dosepak, which did help him temporarily. hx ACDF at C6-C7 in August of 2019 mri confirms severe bilateral foraminal stenosis and severe narrowing of the thecal sac. Past Medical History Past Medical History mri confirms severe bilateral foraminal stenosis and severe narrowing of the thecal sac. 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) Current Medications Current Medications Current Medications Fentanyl Citrate (Fentanyl 2ml Vial) 25 mcg PRN Q5MIN PRN IVP MILD PAIN 1-3; Start 08/09/20 at 06:00; Stop 08/10/20 at 05:59 Fentanyl Citrate (Fentanyl 2ml Vial) 50 mcg PRN Q5MIN PRN IVP MODERATE PAIN 4-6 Last administered on 08/09/20at 14:48; Start 08/09/20 at 06:00; Stop 08/10/20 at 05:59 Morphine Sulfate (Morphine Sulfate) 1 mg PRN Q10MIN PRN IVP SEVERE PAIN 7-10 Last administered on 08/09/20at 15:08; Start 08/09/20 at 06:00; Stop 08/10/20 at 05:59 Ringer's Solution 1,000 ml @ 30 mls/hr Q24H IV Last administered on 08/09/20at 09:25; Start 08/09/20 at 06:00; Stop 08/09/20 at 17:59 Hydromorphone HCl (Dilaudid) 0.5 mg PRN Q10MIN PRN IVP SEVERE PAIN 7-10, 2nd CHOICE; Start 08/09/20 at 06:00; Stop 08/10/20 at 05:59 Prochlorperazine Edisylate (Compazine) 5 mg PACU PRN PRN IVP NAUSEA, MRX1 Last administered on 08/09/20at 14:48; Start 08/09/20 at 06:00; Stop 08/10/20 at 05:59 Bacitracin 14058 unit/Sodium Chloride 1,000 ml @ 1,000 mls/hr 1X ONCE IRR Last administered on 08/09/20at 12:29; Start 08/09/20 at 06:00; Stop 08/09/20 at 06:59; Status DC Cefazolin Sodium/ Dextrose 50 ml @ 100 mls/hr 1X PREOP PRN IV PRIOR TO PROCEDURE Last administered on 08/09/20at 12:00; Start 08/09/20 at 06:00; Stop 08/09/20 at 18:00 Gelatin (Gelfoam Size 100) 1 each STK-MED ONCE .ROUTE Last administered on 08/09/20at 12:29; Start 08/09/20 at 10:10; Stop 08/09/20 at 10:11; Status DC Ketorolac Tromethamine (Toradol Im) 60 mg STK-MED ONCE .ROUTE Last administered on 08/09/20at 12:29; Start 08/09/20 at 10:10; Stop 08/09/20 at 10:11; Status DC Thrombin 20,000 unit STK-MED ONCE TP Last administered on 08/09/20at 12:29; Start 08/09/20 at 10:11; Stop 08/09/20 at 10:11; Status DC Bupivacaine HCl/ Epinephrine Bitart (Sensorcain-Epi 0.5%-1:723802 Mpf) 30 ml STK-MED ONCE .ROUTE Last administered on 08/09/20at 12:29; Start 08/09/20 at 10:11; Stop 08/09/20 at 10:11; Status DC Ephedrine Sulfate (ePHEDrine PF IN SALINE SYRINGE) 50 mg STK-MED ONCE IV ; Start 08/09/20 at 10:40; Stop 08/09/20 at 10:41; Status DC Glycopyrrolate (Robinul) 1 mg STK-MED ONCE .ROUTE ; Start 08/09/20 at 10:41; Stop 08/09/20 at 10:41; Status DC Propofol 50 ml @ As Directed STK-MED ONCE IV ; Start 08/09/20 at 10:41; Stop 08/09/20 at 10:41; Status DC Propofol (Diprivan) 200 mg STK-MED ONCE IV ; Start 08/09/20 at 10:42; Stop 08/09/20 at 10:42; Status DC Lidocaine HCl (Lidocaine Pf 2% Vial) 5 ml STK-MED ONCE .ROUTE ; Start 08/09/20 at 10:42; Stop 08/09/20 at 10:42; Status DC Fentanyl Citrate (Fentanyl 2ml Vial) 100 mcg STK-MED ONCE .ROUTE ; Start 08/09/20 at 10:42; Stop 08/09/20 at 10:43; Status DC Remifentanil HCl (Ultiva) 2 mg STK-MED ONCE IV ; Start 08/09/20 at 10:43; Stop 08/09/20 at 10:43; Status DC Rocuronium Montgomery (Zemuron) 50 mg STK-MED ONCE .ROUTE ; Start 08/09/20 at 10:43; Stop 08/09/20 at 10:43; Status DC Succinylcholine Chloride (Anectine) 200 mg STK-MED ONCE .ROUTE ; Start 08/09/20 at 10:43; Stop 08/09/20 at 10:43; Status DC Desflurane (Suprane) 90 ml STK-MED ONCE IH ; Start 08/09/20 at 12:04; Stop 08/09/20 at 12:05; Status DC Phenylephrine HCl (Owen-Synephrine Inj) 10 mg STK-MED ONCE .ROUTE ; Start 08/09/20 at 12:04; Stop 08/09/20 at 12:05; Status DC Propofol 50 ml @ As Directed STK-MED ONCE IV ; Start 08/09/20 at 13:29; Stop 08/09/20 at 13:30; Status DC Desflurane (Suprane) 90 ml STK-MED ONCE IH ; Start 08/09/20 at 13:29; Stop 08/09/20 at 13:30; Status DC Neostigmine Montgomery (Neostigmine Methylsulfate) 5 mg STK-MED ONCE .ROUTE ; Start 08/09/20 at 13:30; Stop 08/09/20 at 13:30; Status DC Fentanyl Citrate (Fentanyl 2ml Vial) 100 mcg STK-MED ONCE .ROUTE ; Start 08/09/20 at 14:24; Stop 08/09/20 at 14:24; Status DC Prochlorperazine Edisylate (Compazine) 10 mg STK-MED ONCE .ROUTE ; Start 08/09/20 at 14:24; Stop 08/09/20 at 14:24; Status DC Potassium Chloride (Klor-Con) 20 meq DAILY PO ; Start 08/10/20 at 09:00; Status UNV Non-Formulary Medication (Meloxicam ) 1 tab DAILY PO ; Start 08/10/20 at 09:00; Status UNV Non-Formulary Medication (Olmesartan/ Hydrochlorothiazide (Benicar Hct 40-25 Mg Tablet)) 1 tab DAILY PO ; Start 08/10/20 at 09:00; Status UNV Non-Formulary Medication (Omeprazole ) 1 cap DAILY PO ; Start 08/10/20 at 09:00; Status UNV Acetaminophen (Tylenol) 650 mg PRN Q6HRS PRN PO MILD PAIN / TEMP > 100.3'F; Start 08/09/20 at 15:15 Al Hydroxide/Mg Hydroxide (Mylanta Plus Xs) 30 ml PRN Q3HRS PRN PO HEARTBURN / GAS; Start 08/09/20 at 15:15 Calcium Carbonate/ Glycine (Tums) 500 mg PRN Q3HRS PRN PO INDIGESTION; Start 08/09/20 at 15:15 Diphenhydramine HCl (Benadryl) 25 mg PRN Q6HRS PRN PO ITCHING; Start 08/09/20 at 15:15 Naloxone HCl (Narcan) 0.1 mg PRN Q2MIN PRN IV SEE COMMENTS; Start 08/09/20 at 15:15 Sodium Chloride (Normal Saline Flush) 3 ml QSHIFT PRN IV AFTER MEDS AND BLOOD DRAWS; Start 08/09/20 at 15:15 Potassium Chloride/Dextrose/ Sod Cl 1,000 ml @ 75 mls/hr [id number] IV ; Start 08/09/20 at 15:15 Acetaminophen/ Hydrocodone Bitart (Lortab 5/325) 1 tab PRN Q4HRS PRN PO MODERATE PAIN; Start 08/09/20 at 15:15 Acetaminophen/ Hydrocodone Bitart (Lortab 5/325) 2 tab PRN Q4HRS PRN PO SEVERE PAIN; Start 08/09/20 at 15:15 Methocarbamol (Robaxin) 750 mg TID PRN PO MUSCLE SPASMS; Start 08/09/20 at 15:15; Status UNV Docusate Sodium (Colace) 100 mg BID PO ; Start 08/09/20 at 21:00 Magnesium Hydroxide (Milk Of Magnesia) 2,400 mg PRN Q12HR PRN PO CONSTIPATION; Start 08/09/20 at 15:15 Fentanyl Citrate (Fentanyl 2ml Vial) 50 mcg PRN Q2HR PRN IVP PAIN; Start 08/09/20 at 15:15 Active Scripts Active Reported Meloxicam 15 Mg Tablet 1 Tab PO DAILY 30 Days Omeprazole 40 Mg Capsule.dr 1 Cap PO DAILY Potassium Chloride (Potassium Chloride) 20 Meq Tablet.er 20 Meq PO DAILY Benicar Hct 40-25 Mg Tablet (Olmesartan/Hydrochlorothiazide) 1 Each Tablet 1 Tab PO DAILY 30 Days Allergies Allergies: Coded Allergies: iodine (Verified Allergy, Intermediate, SNEEZING AND ITCHY EYES, 08/09/20) lisinopril (Verified Allergy, Intermediate, cough, 08/09/20) ROS General: No: Chills, Night Sweats, Fatigue, Malaise, Appetite, Other PSYCHOLOGICAL ROS: No: Anxiety, Behavioral Disorder, Concentration difficultie, Decreased libido, Depression, Disorientation, Hallucinations, Hostility, Irritablity, Memory difficulties, Mood Swings, Obsessive thoughts, Physical abuse, Sexual abuse, Sleep disturbances, Suicidal ideation, Other Eyes: No Blurry vision, No Decreased vision, No Double vision, No Dry eyes, No Excessive tearing, No Eye Pain, No Itchy Eyes, No Loss of vision, No Photophobia, No Scotomata, No Uses contacts, No Uses glasses, No Other HEENT: No: Heacaches, Visual Changes, Hearing change, Nasal congestion, Nasal discharge, Oral lesions, Sinus pain, Sore Throat, Epistaxis, Sneezing, Snoring, Tinnitus, Vertigo, Vocal changes, Other ALLERGY AND IMMUNOLOGY: YES: Hives; No: Insect Bite Sensitivity, Itchy/Watery Eyes, Nasal Congestion, Post Nasal Drip, Seasonal Allergies, Other Hematological and Lymphatic: No: Bleeding Problems, Blood Clots, Blood Transfusions, Brusing, Night Sweats, Pallor, Swollen Lymph Nodes, Other ENDOCRINE: No: Breast Changes, Galactorrhea, Hair Pattern Changes, Hot Flashes, Malaise/lethargy, Mood Swings, Palpitations, Polydipsia/polyuria, Skin Changes, Temperature Intolerance, Unexpected Weight Changes, Other Breast: No New/Changing Breast Lumps, No Nipple changes, No Nipple discharge, No Other Respiratory: No: Cough, Hemoptysis, Orthopnea, Pleuritic Pain, Shortness of breath, SOB with excertion, Sputum Changes, Stridor, Tachypnea, Wheezing, Other Cardiovascular: No Chest Pain, No Palpitations, No Orthopnea, No Paroxysmal Noc. Dyspnea, No Edema, No Lt Headedness, No Other Gastrointestinal: No Nausea, No Vomiting, No Abdominal Pain, No Diarrhea, No Constipation, No Melena, No Hematochezia, No Other Genitourinary: No Dysuria, No Frequency, No Incontinence, No Hematuria, No Retention, No Discharge, No Urgency, No Pain, No Flank Pain, No Other, No , No , No , No , No , No , No Musculoskeletal: Yes Gait Disturbance, Yes Joint Stiffness, Yes Pain In: (LOW BACK AND LEGS) Neurological: Yes Gait Disturbance; No Behavorial Changes, No Bowel/Bladder ControlChng, No Confusion, No Dizz iness, No Headaches, No Impaired Coord/balance, No Memory Loss, No Numbness/Tingling, No Seizures, No Speech Problems, No Tremors, No Visual Changes, No Weakness, No Other Skin: No Dry Skin, No Eczema, No Hair Changes, No Lumps, No Mole Changes, No Mottling, No Nail Changes, No Pruritus, No Rash, No Skin Lesion Changes, No Other, No Acne Physical Exam Physical Exam Constitutional: Well developed, well nourished, no acute distress, non-toxic appearance. [] HENT: Normocephalic, atraumatic, bilateral external ears normal, oropharynx mois t, no oral exudates, nose normal. [] Eyes: PERRLA, EOMI, conjunctiva normal, no discharge. [] Neck: Normal range of motion, no tenderness, supple, no stridor. [] Cardiovascular:Heart rate regular rhythm, no murmur [] Lungs & Thorax: Bilateral breath sounds clear to auscultation [] Abdomen: Bowel sounds normal, soft, no tenderness, no masses, no pulsatile masses. [] Skin: Warm, dry, no erythema, no rash. [] Back: No tenderness, no CVA tenderness. [] Extremities: no edema Cap refill <2 seconds to the right upper extremity. Neurologic: Alert and oriented X 3, [] Psychologic: Affect normal, judgment normal, mood normal. [] General: Alert, Oriented X3, Cooperative, No acute distress HEENT: Atraumatic, EOMI, Mucous membr. moist/pink Lungs: Clear to auscultation, Normal air movement Heart: S1S2, RRR, no thrills, no gallops, no murmurs Breasts: Not examined Abdomen: Normal bowel sounds, Soft, No tenderness, No hepatosplenomegaly, No masses Rectal Exam: not examined, deferred PELVIC: Examination not indicated Extremities: No cyanosis Neuro: Normal speech, Cranial nerves 3-12 NL Psych/Mental Status: Mental status NL, Mood NL Vitals Vitals Vital Signs Date Time Temp Pulse Resp B/P (MAP) Pulse Ox O2 Delivery O2 Flow Rate FiO2 08/09/20 15:03 66 12 89/56 91 Nasal Cannula 3 08/09/20 14:18 97.3 97.3 Images Images WHAT IS THE PURPOSE OF AN ADVANCE DIRECTIVE? (ALSO KNOWN A LIVING WILL OR HEALTHCARE POWER OF ARMORED CAR MESSENGER) To articulate and document your wishes concerning medical treatment should you lose decision-making ability. To designate an individual, known as your healthcare agent or proxy, to ensure your wishes are honored should you no longer be able to speak for yourself. This includes, among other things, making decisions about when to withhold or withdraw life-sustaining treatment. WHERE CAN I FIND AN ADVANCE DIRECTIVE FORM? The National [employer] Organization has a list of advance directive forms for every state. We also recommend checking your state [employer] website for the most up-to-date forms. Find quick links to all state and territory government websites at [employer]. WHAT MUST I INCLUDE IN MY ADVANCE DIRECTIVE? The name and contact information of your healthcare agent/proxy. Answers to specific questions about your preferences for care if you become unable to speak for yourself. The forms and questions asked vary a bit from state to state. A sample question: Do you want to receive artificially provided nutrition or hydration when you are close to and/or permanently unconscious? Names and signatures of individuals who witness your signing your advance dir ective, if required. Not all states require witness signatures. The signature and seal of a director public, if required by your state. Not all states require advance directives to be notarized. [facility] has a list of all advance directive/living will requirements by state. WHAT ELSE WOULD BE GOOD TO INCLUDE IN MY ADVANCE DIRECTIVE? Detailed information about what procedures or types of care you would like to receive and what you wish to avoid at all costs that are not covered by the questions on the form. Would you want to take advantage of all life-support technologies if it would only postpone ? Would you want to use them if you were permanently unconscious? Would you want them if you were going through an advanced progressive illness? More general statements about your values regarding end-of-life care. What does a good mean and look like to you? For that matter, what defines a life worth living? Do you define life by the intake of breath and nutrients? Is it defined by consciousness? At what point do you want to prolong it and at what point do you want to preserve resources for other people? Personal desires for body disposition in essence, what you want to happen to your body when you and plans for any memorial service(s) A list of people who cannot make healthcare decisions for you. Leave no room for ambiguity, which could lead to tensions between loved ones about your care as you are dying. HOW SHOULD I GO ABOUT IDENTIFYING MY HEALTHCARE AGENT/PROXY? An ideal person for the job is someone who: Knows you well. A spouse/partner, a family member, a close friend: all are good candidates. Excels at making difficult decisions under pressure. Is diplomatic and empathetic critical traits for balancing the needs, wants, and unpredictable emotions of a patients loved ones. Isnt afraid to ask tough questions, which invariably arise when discussing a dying individuals end-of-life care. Is easily reachable by email, phone, and/or text. Is or can easily be within physical proximity of where youre likely to receive care. Once Hilda identified this person, how do I talk to them about what care I want and dont want at the end of life? Have multiple conversations with your healthcare agent about your wishes. Take them out to tea, have them over for dinner, go to a bar or library. Talk about what you want, and make sure you are heard and understood. If you see fit, and if your agent doesnt already know this information, you can share a bit about the personalities of the people who will be most invested in your health outcomes, and how best to handle these folks in situations when emotions will be running high. This can be a serious conversation or it can be full of laughs. You get to decide how the conversation plays out. WHAT IF MY HEALTHCARE AGENT/PROXY IS UNAVAILABLE TO EXECUTE THEIR DUTIES WHEN I AM DYING? It is important to appoint an alternative agent/proxy for exactly this reason. Identify and inform that person as you did your main agent/proxy, and list them as an alternate on your advance directive form. WHAT ABOUT THE TWO WITNESSES? ARE THERE ANY SPECIAL REQUIREMENTS FOR WHO CAN AND CANT SERVE IN THIS ROLE? In most states, witnesses cannot be: Your healthcare agent or proxy; Any of your care providers; Related to you by blood, adoption, or marriage; Entitled to any portion of your estate upon your . dpoa review> 20 min to portal PATIENT: MATHIEU HICKEY ACCOUNT: [id number] : 1955 LOCATION: [facility] MRI AGE: 64 SEX: M EXAM STATUS: REG CLI ORD. PHYSICIAN: BRIANA PÉREZ APRN REASON: CHRONIC LBP WITH ACUTE EXACERBATION FEB 2020. PROCEDURE: LUMBAR SPINE WO CONTRAST EXAM: Lumbar spine MRI without contrast. HISTORY: Acute back pain. TECHNIQUE: Multiplanar, multisequence magnetic resonance imaging of the lumbar spine was performed without contrast. COMPARISON: CT dated 01/27/2020. FINDINGS: There is a transitional lumbosacral segment. This considered S1 with rudimentary S1-S2 disc for this dictation. There is grade 1 anterolisthesis of L5 on S1, measuring 5 mm. There are bilateral pars interarticularis defects at this level. There is degenerative endplate remodeling with disc space narrowing, osteophytosis and disc desiccation at this level. There is no suspicious osseous lesion. There are few benign osseous hemangiomas. The conus terminates at L1-L2. There is suggestion of a 10 mm partially exophytic lesion along the posterior mid zone of the left kidney. At L1-L2 and L2-L3, there is no stenosis. At L3-L4, there is a disc bulge and endplate remodeling. There is mild bilateral facet arthropathy. There is no stenosis. At L4-L5, there is a minimal shallow posterior central disc protrusion. There is endplate remodeling. There is mild bilateral facet arthropathy. There is no stenosis. At L5-S1, there is a broad-based posterior central to left paracentral disc protrusion with left paracentral to lateral recess disc extrusion extending 10 mm superior to the disc space. There are also bilateral paracentral to extraforaminal disc protrusions and slight superior extrusions and osteophyte complexes at this level. There is epidural lipomatosis. There is grade 1 anterolisthesis with bilateral pars defects. There is severe lateral foraminal stenosis with abutment the exiting L5 nerve roots. There is severe narrowing of the thecal sac predominant due to epidural lipomatosis. IMPRESSION: 1. L5-S1: Broad-based posterior central to left paracentral disc protrusion with superimposed left paracentral to lateral recess superior extrusion and bilateral posterior lateral disc protrusions with slight superior extrusions and osteophyte complexes. The combination of these findings and grade 1 anterolisthesis with bilateral pars defects and epidural lipomatosis results in severe bilateral foraminal stenosis and severe narrowing of the thecal sac. 2. Mild degenerative change throughout the remainder the lumbar spine, described in detail above. No additional significant foraminal or central canal stenosis is seen. 3. Suspected small partially exophytic lesion along the posterior mid zone of the left kidney. The previously suspected right renal cysts is excluded from the [id number] on this exam. Renal sonography can be performed to confirm benignity. The adrenal gland are also excluded from the [id number]. Electronically signed by: Meg Meyer MD (06/21/2020 12:35 PM) [id number] DICTATED and SIGNED BY: MEG MEYER MD DATE: 06/21/20 [id number] VTE Prophylaxis Ordered VTE Prophylaxis Devices: No VTE Pharmacological Prophylaxi: Contraindicated Assessment/Plan Assessment/Plan IMPRESSION: Severe radicular lower ext pain, failed out patient treatment L5-S1: Broad-based posterior central to left paracentral disc protrusion superimposed left paracentral to lateral recess superior extrusion and bilateral posterior lateral disc protrusions with slight superior extrusions and osteophyte complexes. grade 1 anterolisthesis with bilateral pars defects and epidural lipomatosis results in severe bilateral foraminal stenosis and severe narrowing of the thecal sac. hx ACDF at C6-C7 in August of 2019 [facility] mri confirms severe bilateral foraminal stenosis and severe narrowing of the thecal sac. PLAN ADMIT POST OP GROUP HOME MEDS PAIN CONTROL iv fluid support BP CONTROL d/w rn SEEN IN PACU Justifications for Admission Other Justification BRIANA CUMMINGS MD August 09, 2020 15:31
[2020-08-09] MEDS ORDERED: MORPHINE SULFATE 2 MG/ML VIAL. ONE (16:17)
[2020-08-09] MEDS: DOCUSATE SODIUM 100 MG CAPSULE. PO SCH (21:31)
[2020-08-10 02:38] VITALS: BP 108/78
[2020-08-10] MEDS: ACETAMINOPHEN 325 MG TABLET. PO PRN ×2 (03:43→07:43)
[2020-08-10] MEDS: POTASSIUM CL 20MEQ D5-0.45NACL 1,000 ML IV SCH (04:35)
[2020-08-10 06:35] VITALS: BP 106/66
[2020-08-10 07:25] LABS: BASO % 0 % (0-3); EOS % 1 % (0-3); LYMPH # 1.5 x10^3/uL (1.0-4.8); LYMPH % 14 % (24-48); MEAN CORPUSCULAR HEMOGLOBIN 31 pg (25-35); MEAN CORPUSCULAR HGB CONC 34 g/dL (31-37); MEAN CORPUSCULAR VOLUME 91 fL (79-100); MONO % 10 % (0-9); NEUT # 7.9 x10^3/uL (1.8-7.7); NEUT % 75 % (31-73); PLATELET COUNT 249 x10^3/uL (140-400); RED BLOOD COUNT 4.19 x10^6/uL (4.30-5.70); RED CELL DISTRIBUTION WIDTH 13.5 % (11.5-14.5); WHITE BLOOD COUNT 10.5 x10^3/uL (4.0-11.0)
[2020-08-10] MEDS ORDERED: PANTOPRAZOLE 40 MG TABLET.DR. PO SCH (07:30)
[2020-08-10 07:37] LABS: CALCIUM 8.7 mg/dL (8.5-10.1); CREATININE 0.8 mg/dL (0.7-1.3); GFR 97.3; POTASSIUM 4.1 mmol/L (3.5-5.1)
[2020-08-10] MEDS: DOCUSATE SODIUM 100 MG CAPSULE. PO SCH (08:28)
[2020-08-10] MEDS ORDERED: LOSARTAN POTASSIUM 50 MG TABLET. PO SCH (09:00)
[2020-08-10] MEDS ORDERED: MELOXICAM 7.5 MG TABLET PO SCH (09:00)
[2020-08-10] MEDS ORDERED: POTASSIUM CHLORIDE 20 MEQ TABLET.ER. PO SCH (09:00)
[2020-08-10] MEDS ORDERED: hydroCHLOROthiazide 25 MG TABLET PO SCH (09:00)
--- NOTE | 2020-08-10 09:24 | OP ---
DATE OF SURGERY: 08/09/2020 PREOPERATIVE DIAGNOSES: Lumbar spinal stenosis, L5-S1 from disc bulging as well as epidural lipomatosis and hypertrophic facet and ligament. POSTOPERATIVE DIAGNOSES: Lumbar spinal stenosis, L5-S1 from disc bulging as well as epidural lipomatosis and hypertrophic facet and ligament. OPERATION PERFORMED: Lumbar laminectomy L5-S1 with removal of epidural fat and fluid filled and decompression of the dura and nerve roots. SURGEON: Robel Capone M.D. TRANSITION NURSE: Delia Fatima APRN INDICATIONS: The patient is a pleasant 64-year-old man who developed intractable back and bilateral lower extremity symptoms. Chiropractic treatment as well as other conservative treatments gave no long-term benefit and he had the above-mentioned findings on imaging studies. I recommended surgery with removal of the epidural lipomatosis and decompression of the dura and nerve root. He understood and wished to go ahead. DESCRIPTION OF PROCEDURE: Following general endotracheal anesthesia, the patient was positioned prone on the Castillo table. Lumbar region was then prepped and draped in the standard fashion. SARA hose and AV impulse boots were applied for DVT prophylaxis. The microscope was draped, fluoroscopy was draped and brought into the field. Monitoring was established. Ancef 2 grams was given less than one hour prior to initiation of the surgery. Using fluoroscopic guidance, a midline incision was made and taken down through skin and subcutaneous tissue. I reflected the paraspinal muscles bilaterally and placed a Yañez retractor. I brought in the microscope and trimmed away the spinous process and then used a high speed air drill to drill down the lamina to thin it and in many places to remove it. I then widely opened the region with the 2.5 and 4 mm Fehling Kerrison rongeurs. I removed the ligamentum flavum and to perform partial foraminotomies, the dura was very tightly compressed from bone ligament and fat and I removed this material posteriorly. I worked around both the sides of the dura and gently retracted the root medially. There was disc bulging, but the disc was extremely firm and hard and no discectomy was warranted. The anterior fat was scarred and intimately attached to the dura and nerve roots and removal of the anterior fat was more limited; however, an excellent removal of the posterior. At this point then I explored carefully. I confirmed my decompression fluoroscopically. I felt I had an excellent decompression. I irrigated copiously with antibiotic solution. We did notice in the surgery that the lamina of L5 was loosely attached and I felt that he had a pars defect in this region. At any rate, at the end of the operation, hemostasis was excellent. The dura was very well decompressed. I closed the wound in layers with absorbable suture. The skin was closed with 4-0 subcuticular stitch. I felt the surgery went very well. AHMET/ANIBAL DR: Waylon TID: [id number] ANDREW
[2020-08-10 10:08] VITALS: BP 109/75
--- NOTE | 2020-08-10 11:04 | NUR ---
reviewed written discharge instructions. reviewed incisional care, restrictions activities of living such as bathing, dressing changes, lifting restrictions, driving and exercise. discussed side effects to pain medications pedro constipation. verbalized understanding of these instructions. dismissed to home Addendum: 08/10/20 at 1116 by BERTO MOSER RN He left prior to giving him the scripts. will return to [facility]
--- NOTE | 2020-08-14 14:07 | PATHOLOGY ---
[facility] Accession Number: [id number] . 01 Material submitted: . vertebral column - LUMBAR DISC AND DECOMPRESSION . 01 Clinical history: . LUMBAR STENOSIS HERNIATED DISC AND RADICULOPATHY LUMBAR LAMINECTOMY MICRODISCECTOMY L5-S1 LUMBAR STENOSIS EPIDURAL . 02 Diagnosis: Segments of fibrocartilaginous, adipose, and skeletal muscle tissue and bone, lumbar disc and decompression: - Degenerative changes of fibrocartilaginous tissue. . [facility]; [facility] 08/14/2020 1132 Local . 02 Comment: There is no evidence of an acute inflammatory process or malignancy. . ([facility]:mm; 08/14/2020) . 02 Electronically signed: . Akira Yañez MD, Pathologist NPI- [id number] . 01 Gross description: . Received in formalin labeled "Aguirre, Hugo and lumbar discectomy decompression". Received are multiple pink-cano soft tissue fragments admixed with segments of gritty bone measuring in aggregate 5.0 x 5.0 x 1.0 cm. The specimen is representatively submitted in cassette A1 after decalcification.([facility]; 08/10/2020) [facility] 08/14/2020 1143 Local . 02 Pathologist provided ICD-10: M51.36 . 02 CPT . 248129, [id number] Specimen Comment: A courtesy copy of this report has been sent to [phone], [phone] Specimen Comment: [id number] Specimen Comment: Report sent to / DR PHELAN Performed at: [address], [place], [place] [id number] MD Donte Kennedy MD Phone: [phone] Performed at: 02 [facility] [address] [place], [place] [id number] MD Akira Yañez MD Phone: [phone]
== END 2020-08-10 11:10 | disposition home or self-care (01) ==
LOC: SURG 08:26 → 4 SOUTHEST 15:12
PROVIDERS: ADMIT Neurological Surgery; ATTEND Neurological Surgery
DX: M48.07 Spinal stenosis, lumbosacral region (principal); M79.662 Pain in left lower leg; I10 Essential (primary) hypertension; K21.9 Gastro-esophageal reflux disease without esophagitis; E78.5 Hyperlipidemia, unspecified; M19.90 Unspecified osteoarthritis, unspecified site; E66.01 Morbid (severe) obesity due to excess calories; M48.061 Spinal stenosis, lumbar region without neurogenic claudication; M51.27 Other intervertebral disc displacement, lumbosacral region; M43.17 Spondylolisthesis, lumbosacral region; D18.09 Hemangioma of other sites; L50.9 Urticaria, unspecified; Z87.891 Personal history of nicotine dependence; Z79.899 Other long term (current) drug therapy; Z98.890 Other specified postprocedural states; Z68.38 Body mass index [BMI] 38.0-38.9, adult
CPT/HCPCS: 36415; 63047; 80048; 85025; 88304; 88311; 97116; 97162; 97530; A4364; A4930; A6254; A6258; G0378; G0379; J0330; J0690; J0780; J1885; J2270; J2370; J2704; J2710; J3010; J3490; J7030; 76000

== ENCOUNTER → 2021-01-01 | Outpatient (CLI) | payer MEDICARE ==
[~2021-01-01] MED LIST changes: -BACITRACIN 50,000 UNIT in IV NORMAL SALINE 1000ML BAG 1,000 ML IRR ONE; +DOCU-109 PO; +DOCU-148 PO; -DOCU-153 PO; -HYDROmorphone 2 MG/ML VIAL IVP PRN; -IV RINGERS,LACTATED 1000ML 1,000 ML IV SCH; -OMEP40CA45 PO; +OMEP40CA7 PO; -fentaNYL PF VIAL 100 MCG/2 ML VIAL IVP PRN
--- NOTE | 2021-01-02 16:16 | RAD ---
US TESTICULAR History: Reason: BILATERAL TESTICULAR PAIN / Spl. Instructions: / History: Comparison: None. Technique: Multiple grayscale, color flow Doppler and Doppler spectral analysis images of the scrotum are obtained. Findings: Right testicle measures 4.5 x 3.4 x 2.8 cm. Small testicular cyst measures 1.4 cm. Large lobulated c yst inferior to the right testicle measures 5.9 x 2.9 x 1.5 cm. Degraded evaluation of the right epid idymis. Left testicle measures 4.5 x 3.0 x 2.1 cm. Several left epididymal head cysts largest measures 0.6 c m. Small right hydrocele. No scrotal hyperemia or swelling. Doppler imaging demonstrates normal flow to both testicles, without evidence of torsion. IMPRESSION: 1. Lobulated cyst inferior to the right testicle, may represent epididymal head cyst. 2. Left epididymal head cysts. 3. Right testicular cyst. 4. Small left hydrocele. Electronically signed by: Billy Gatica DO (01/02/2021 4:14 PM) [facility]
== END ==
LOC: US 15:22
PROVIDERS: ATTEND Physician Assistant
DX: N43.3 Hydrocele, unspecified (principal); N44.2 Benign cyst of testis
CPT/HCPCS: 76870